=== PATIENT | male | born 1955 | race Caucasian/White ===

== ENCOUNTER 2018-10-29 15:36 | Inpatient (IN) | payer OTHER ==
[2018-10-29 16:36] VITALS: BMI 17.4
--- NOTE | 2018-10-29 17:28 | HP ---
CIWA Score Nausea/Vomitin Muscle Tremors: 2 Anxiety: 2 Agitation: 2 Paroxysmal Sweats: 1-Minimal Palms Moist Orientation: 0-Oriented Tacttile Disturbances: 1-Very Mild Itch/Numbness Auditory Disturbances: 1-Very Mild Visual Disturbances: 0-None Headache: 2-Mild CIWA-Ar Total Score: 13 - Admission Criteria [facility]ASAS Guidelines: Admission for Medically Managed Detox: Requires at least one of the followin. CIWA greater than 12 2. Seizures within the past 24 hours 3. Delirium tremens within the past 24 hours 4. Hallucinations within the past 24 hours 5. Acute intervention needed for co occurring medical disorder 6. Acute intervention needed for co occurring psychiatric disorder 7. Severe withdrawal that cannot be handled at a lower level of care (continued vomiting, continued diarrhea, abnormal vital signs) requiring intravenous medication and/or fluids 8. Patient presents the following: CIWA greater than 12 Admission Criteria Met: Admission criteria met Admission ROS BHS - HPI Chief Complaint: i need help to stop drinking alcohol and marijuana Allergies/Adverse Reactions: Allergies Allergy/AdvReac Type Severity Reaction Status Date / Time No Known Allergies Allergy Verified 10/29/18 18:34 History of Present Illness: this 63 years old male with alcohol and marijuana dependence,seeking detox, withdrawal symptom,last detox 2017 in [facility] syncope fx of right patella,right leg had calvin in right leg,walking with cane since then nicotine dependence no significant period of sobriety weight loss Exam Limitations: No Limitations - Ebola screening Have you traveled outside of the country in the last 21 days: No (N) Have you had contact with anyone from an Ebola affected area: No Have you been sick,other than usual withdrawal symptoms: No Do you have a fever: No - Review of Systems Constitutional: Loss of Appetite, Malaise, Night Sweats, Changes in sleep, Weakness, Unintentional Wgt. Loss EENT: reports: Nose Congestion Respiratory: reports: No Symptoms reported Cardiac: reports: No Symptoms Reported GI: reports: Diarrhea, Nausea, Poor Appetite : reports: No Symptoms Reported Integumentary: reports: Dryness Neuro: reports: Headache, Tremors Endocrine: reports: No Symptoms Reported Hematology: reports: No Symptoms Reported Psychiatric: reports: No Sypmtoms Reported, Judgement Intact, Mood/Affect Appropiate, Orientated x3 Other Systems: Reviewed and Negative Patient History - Patient Medical History Hx Anemia: No Hx Asthma: No Hx Chronic Obstructive Pulmonary Disease (COPD): No Hx Cancer: No Hx Cardiac Disorders: No Hx Congestive Heart Failure: No Hx Hypertension: No Hx Hypercholesterolemia: No Hx Pacemaker: No HX Cerebrovascular Accident: No Hx Seizures: No Hx Dementia: No Hx Diabetes: No Hx Gastrointestinal Disorders: No Hx Liver Disease: No Hx Genitourinary Disorders: No Hx Sexually Transmitted Disorders: No Hx Renal Disease (ESRD): No Hx Thyroid Disease: No Hx Human Immunodeficiency Virus (HIV): No (last 2018 negative) Hx Hepatitis C: No Hx Depression: Yes (no medication) Hx Suicide Attempt: No Hx Schizophrenia: No Other Medical History: no suiidal,no homicidal,x of right leg and patella, ambulation - Patient Surgical History Past Surgical History: Yes Hx Orthopedic Surgery: Yes (fx of right leg had calvin in 2016) - PPD History Documented Results: Negative w/o proof Implanted On Prior [facility] Admission?: Yes Date: 06/04/14 PPD to be Administered?: Yes - Smoking Cessation Smoking history: Current every day smoker Have you smoked in the past 12 months: Yes Aproximately how many cigarettes per day: 10 Hx Chewing Tobacco Use: No Initiated information on smoking cessation: Yes 'Breaking Loose' booklet given: 10/29/18 - Substance & Tx. History Hx Alcohol Use: Yes Hx Substance Use: Yes Substance Use Type: Alcohol, Marijuana Hx Substance Use Treatment: Yes ([place]) - Substances Abused Alcohol Route: Oral Frequency: Daily Amount used: 6 packs of 12 ozs of beer Age of first use: 16 Date of Last Use: 10/29/18 Marijuana/Hashish Route: Smoking Frequency: 1-2 times per week Amount used: 5$ Age of first use: 24 Date of Last Use: 10/26/18 Family Disease History - Family Disease History Family History: Denies Admission Physical Exam BHS - Vital Signs Vital Signs: Vital Signs - 24 hr 10/29/18 16:34 Temperature 97.1 F L Pulse Rate 103 H Respiratory 18 Rate Blood Pressure 141/95 - Physical General Appearance: Yes: Moderate Distress, Tremorous, Irritable, Sweating, Anxious HEENTM: Yes: Normal ENT Inspection, GORDY, Pharynx Normal Respiratory: Yes: Lungs Clear, Normal Breath Sounds, No Respiratory Distress Neck: Yes: Within Normal Limits, Supple, Trachea in good position Breast: Yes: Within Normal Limits Cardiology: Yes: Tachycardia Abdominal: Yes: Within Normal Limits, Normal Bowel Sounds, Non Tender, Soft Genitourinary: Yes: Within Normal Limits Back: Yes: Muscle Spasm Musculoskeletal: Yes: Back pain, Muscle Pain Extremities: Yes: Tremors (s/p surgery of right leg) Neurological: Yes: Fully Oriented, Alert, Motor Strength 5/5 Integumentary: Yes: Dry Lymphatic: Yes: Within Normal Limits - Diagnostic (1) Alcohol dependence with uncomplicated withdrawal Current Visit: Yes Status: Acute (2) Cannabis dependence Current Visit: Yes Status: Acute (3) Nicotine dependence Current Visit: No Status: Acute (4) Syncope Current Visit: Yes Status: Acute (5) Weight loss Current Visit: Yes Status: Acute (6) Use of cane as ambulatory aid Current Visit: Yes Status: Acute Cleared for Admission [facility] - Detox or Rehab [facility] Level of Care: Medically Managed Detox Regimen/Protocol: Librium S Breath Alcohol Content Breath Alcohol Content: 0.044 Urine Drug Screen - Results Drug Screen Negative: No Urine Drug Screen Results: THC-Marijuana
[2018-10-29] MEDS ORDERED: LOPERAMIDE HCL 2 MG CAPSULE PO PRN (17:47)
[2018-10-29] MEDS ORDERED: P-EPHED 60MG/TRIPROLIDI 2.5MG TABLET PO PRN (17:47)
[2018-10-29] MEDS ORDERED: MAGNESIUM CITRATE 300 ML BOTTLE PO PRN (17:47)
[2018-10-29] MEDS ORDERED: hydrOXYzine PAMOATE 25 MG CAPSULE (FP) PO PRN (17:47)
[2018-10-29] MEDS ORDERED: ACETAMINOPHEN 325 MG TABLET (FP) PO PRN (17:47)
[2018-10-29] MEDS ORDERED: guaiFENesin/D-METHORPHAN HB 10 ML UNIT-DOSE CUPS PO PRN (17:47)
[2018-10-29] MEDS ORDERED: MENTHOL/PHENOL 1 EACH UD MM PRN (17:47)
[2018-10-29] MEDS ORDERED: MAG HYDROX/AL HYDROX/SIMETH 30 ML UNIT-DOSE CUP PO PRN (17:47)
[2018-10-29] MEDS ORDERED: chlordiazePOXIDE HCL 25 MG CAPSULE PO PRN (17:47)
[2018-10-29] MEDS ORDERED: MAGNESIUM HYDROX 2400MG/30ML ORAL SUSPENSION 30 ML CUP PO PRN (17:47)
[2018-10-29] MEDS ORDERED: MELATONIN 5 MG TABLETS PO PRN (22:00)
[2018-10-29] MEDS: chlordiazePOXIDE HCL 25 MG CAPSULE PO SCH (23:02)
[2018-10-29] MEDS: NICOTINE 21 MG/24 HOURS TOPICAL PATCH TD SCH (23:02)
[2018-10-29] MEDS: THIAMINE HCL 100 MG TABLET (FP) PO SCH (23:02)
[2018-10-30] MEDS: chlordiazePOXIDE HCL 25 MG CAPSULE PO SCH ×4 (05:53→22:07)
[2018-10-30] MEDS: PRENATAL VITAMINS W/ FOLIC ACID TABLET (FP) PO SCH (11:03)
[2018-10-30] MEDS: NICOTINE 21 MG/24 HOURS TOPICAL PATCH TD SCH (11:04)
[2018-10-30 13:03] LABS: HEMATOCRIT 39.6 % (35.4-49); HEMOGLOBIN 12.4 GM/dL (11.7-16.9); MCH 28.6 pg (25.7-33.7); MCHC 31.3 g/dl (32.0-35.9); MEAN CELL VOLUME 91.4 fl (80-96); MEAN PLT VOLUME 7.8 fl (7.5-11.1); PLATELET COUNT 262 K/MM3 (134-434); RBC 4.34 M/mm3 (4.00-5.60); RDW 13.3 % (11.9-15.9); WHITE BLOOD COUNT 5.3 K/mm3 (4.0-10.0)
[2018-10-30 13:05] LABS: ALBUMIN 3.7 g/dl (3.4-5.0); ALK PHOS 81 U/L (45-117); ANION GAP 8 MMOL/L (8-16); BILIRUBIN,TOTAL 1.4 mg/dL (0.2-1); BLOOD UREA NITROGEN 11 mg/dL (7-18); CALCIUM 8.9 mg/dL (8.5-10.1); CHLORIDE 100 mmol/L (98-107); CO2 27 mmol/L (21-32); CREATININE 0.9 mg/dL (0.55-1.3); GLUCOSE,RANDOM 145 mg/dL (74-106); SGOT/AST 27 U/L (15-37); SGPT/ALT 17 U/L (13-61); SODIUM 135 mmol/L (136-145); TOT PROT 7.6 g/dl (6.4-8.2)
[2018-10-30] MEDS: HYDROCORTISONE 1% TOPICAL CREAM 30 GM TUBE TP SCH ×2 (14:18→22:07)
--- NOTE | 2018-10-30 17:23 | PN ---
S CIWA - CIWA Score Nausea/Vomitin Muscle Tremors: 4-Moderate,w/Arms Extend Anxiety: 4-Mod. Anxious/Guarded Agitation: 4-Moderately Restless Paroxysmal Sweats: 3 Orientation: 0-Oriented Tacttile Disturbances: 0-None Auditory Disturbances: 0-None Visual Disturbances: 0-None Headache: 0-None Present CIWA-Ar Total Score: 17 BHS Progress Note (SOAP) Subjective: Tremor, diarrhea, interrupted sleep. Patient c/o itchy rash on right of abdomen stating he accidentally hit his side on metal and the area got scratched and irritating. Objective: 10/30/18 17:19 Last Vital Signs Temp Pulse Resp BP Pulse Ox 99.0 F 78 16 118/79 10/30/18 15:26 10/30/18 15:26 10/30/18 15:26 10/30/18 15:26 Laboratory Tests 10/30/18 10/30/18 10/30/18 07:40 07:40 07:40 WBC 5.3 RBC 4.34 Hgb 12.4 Hct 39.6 MCV 91.4 MCH 28.6 MCHC 31.3 L RDW 13.3 Plt Count 262 D MPV 7.8 Sodium 135 L Potassium 4.0 Chloride 100 Carbon Dioxide 27 Anion Gap 8 BUN 11 Creatinine 0.9 Creat Clearance w eGFR > 60 Random Glucose 145 H Calcium 8.9 Total Bilirubin 1.4 H AST 27 ALT 17 Alkaline Phosphatase 81 Total Protein 7.6 Albumin 3.7 RPR Titer Nonreactive Labs reviewed: glucose 145, total bilirubin 1.4 Assessment: 10/30/18 17:20 Withdrawal symptoms Noted with hyperglycemia and elevated total bilirubin Plan: Continue detox Hyperglycemia: repeat fasting glucose Elevated total bilirubin: repeat total bilirubin level Hydrocortisone cream ordered for itchy rash on abdomen
[2018-10-30] MEDS: THIAMINE HCL 100 MG TABLET (FP) PO SCH (22:07)
[2018-10-30] MEDS: IBUPROFEN 400 MG TABLET (FP) PO PRN (22:09)
[2018-10-31] MEDS: chlordiazePOXIDE HCL 25 MG CAPSULE PO SCH ×3 (05:54→17:25)
[2018-10-31] MEDS: HYDROCORTISONE 1% TOPICAL CREAM 30 GM TUBE TP SCH ×3 (05:55→22:10)
--- NOTE | 2018-10-31 09:13 | PN ---
[facility] CIWA - CIWA Score Nausea/Vomitin-Mild Nausea/No Vomiting Muscle Tremors: 3 Anxiety: 3 Agitation: 2 Paroxysmal Sweats: 1-Minimal Palms Moist Orientation: 1-Uncertain about Date Tacttile Disturbances: 0-None Auditory Disturbances: 0-None Visual Disturbances: 0-None Headache: 2-Mild CIWA-Ar Total Score: 13 S Progress Note (SOAP) Subjective: ambulate with cane on [address] c/o arthritis joints pain requests Enrique guerrero tremor sweat restlessness trouble sleep at night irritable Objective: 10/31/18 15:04 Vital Signs Temperature 97.2 F L 10/31/18 13:22 Pulse Rate 88 10/31/18 13:22 Respiratory Rate 18 10/31/18 13:22 Blood Pressure 119/78 10/31/18 13:22 O2 Sat by Pulse Oximetry (%) Laboratory Last Values WBC 5.3 K/mm3 (4.0-10.0) 10/30/18 07:40 RBC 4.34 M/mm3 (4.00-5.60) 10/30/18 07:40 Hgb 12.4 GM/dL (11.7-16.9) 10/30/18 07:40 Hct 39.6 % (35.4-49) 10/30/18 07:40 MCV 91.4 fl (80-96) 10/30/18 07:40 MCH 28.6 pg (25.7-33.7) 10/30/18 07:40 MCHC 31.3 g/dl (32.0-35.9) L 10/30/18 07:40 RDW 13.3 % (11.9-15.9) 10/30/18 07:40 Plt Count 262 K/MM3 (134-434) D 10/30/18 07:40 MPV 7.8 fl (7.5-11.1) 10/30/18 07:40 Sodium 135 mmol/L (136-145) L 10/30/18 07:40 Potassium 4.0 mmol/L (3.5-5.1) 10/30/18 07:40 Chloride 100 mmol/L (98-107) 10/30/18 07:40 Carbon Dioxide 27 mmol/L (21-32) 10/30/18 07:40 Anion Gap 8 MMOL/L (8-16) 10/30/18 07:40 BUN 11 mg/dL (7-18) 10/30/18 07:40 Creatinine 0.9 mg/dL (0.55-1.3) 10/30/18 07:40 Creat Clearance w eGFR > 60 (>60) 10/30/18 07:40 Random Glucose 145 mg/dL (74-106) H 10/30/18 07:40 Fasting Glucose 134 mg/dL (74-106) H 10/31/18 07:00 Calcium 8.9 mg/dL (8.5-10.1) 10/30/18 07:40 Total Bilirubin 0.8 mg/dL (0.2-1) 10/31/18 07:00 AST 27 U/L (15-37) 10/30/18 07:40 ALT 17 U/L (13-61) 10/30/18 07:40 Alkaline Phosphatase 81 U/L (45-117) 10/30/18 07:40 Total Protein 7.6 g/dl (6.4-8.2) 10/30/18 07:40 Albumin 3.7 g/dl (3.4-5.0) 10/30/18 07:40 RPR Titer Nonreactive (NONREACTIVE) 10/30/18 07:40 lab noted Assessment: 10/31/18 15:04 withdrawal sx 10/31/18 15:04 arthritis Plan: continue detox enrique guerrero
[2018-10-31 10:18] LABS: BILIRUBIN,TOTAL 0.8 mg/dL (0.2-1)
[2018-10-31] MEDS: METHYL SALICYLATE/MENTHOL OINT 30 GM TUBE TP SCH ×2 (10:22→22:11)
[2018-10-31] MEDS: PRENATAL VITAMINS W/ FOLIC ACID TABLET (FP) PO SCH (10:22)
[2018-10-31] MEDS: NICOTINE 21 MG/24 HOURS TOPICAL PATCH TD SCH (10:23)
[2018-10-31] MEDS: IBUPROFEN 400 MG TABLET (FP) PO PRN (17:27)
[2018-10-31] MEDS: THIAMINE HCL 100 MG TABLET (FP) PO SCH (22:12)
[2018-10-31] MEDS: chlordiazePOXIDE 5 MG CAPSULE PO SCH (22:12)
[2018-11-01] MEDS: chlordiazePOXIDE 5 MG CAPSULE PO SCH ×3 (05:53→17:52)
[2018-11-01] MEDS: HYDROCORTISONE 1% TOPICAL CREAM 30 GM TUBE TP SCH ×3 (05:54→22:25)
[2018-11-01] MEDS: PRENATAL VITAMINS W/ FOLIC ACID TABLET (FP) PO SCH (10:19)
[2018-11-01] MEDS: NICOTINE 21 MG/24 HOURS TOPICAL PATCH TD SCH (10:19)
[2018-11-01] MEDS: METHYL SALICYLATE/MENTHOL OINT 30 GM TUBE TP SCH ×2 (10:20→22:24)
--- NOTE | 2018-11-01 12:56 | PN ---
S Progress Note Note: PATIENT CONTINUES WITH DETOX REGIMEN FOR ETOH DEPENDENCE. PATIENT C/O RIGHT HIP AND LEG DISCOMFORT, CHRONIC DUE TO NAE PLACEMENT. PATIENT ALSO C/O HEADACHE AND NAUSEA. Vital Signs Temperature 97.7 F 11/01/18 09:24 Pulse Rate 74 11/01/18 09:24 Respiratory Rate 16 11/01/18 09:24 Blood Pressure 108/80 11/01/18 09:24 O2 Sat by Pulse Oximetry (%) Laboratory Tests 10/30/18 10/30/18 10/30/18 07:40 07:40 07:40 WBC 5.3 RBC 4.34 Hgb 12.4 Hct 39.6 MCV 91.4 MCH 28.6 MCHC 31.3 L RDW 13.3 Plt Count 262 D MPV 7.8 Sodium 135 L Potassium 4.0 Chloride 100 Carbon Dioxide 27 Anion Gap 8 BUN 11 Creatinine 0.9 Creat Clearance w eGFR > 60 Random Glucose 145 H Fasting Glucose Calcium 8.9 Total Bilirubin 1.4 H AST 27 ALT 17 Alkaline Phosphatase 81 Total Protein 7.6 Albumin 3.7 RPR Titer Nonreactive 10/31/18 07:00 WBC RBC Hgb Hct MCV MCH MCHC RDW Plt Count MPV Sodium Potassium Chloride Carbon Dioxide Anion Gap BUN Creatinine Creat Clearance w eGFR Random Glucose Fasting Glucose 134 H Calcium Total Bilirubin 0.8 AST ALT Alkaline Phosphatase Total Protein Albumin RPR Titer PE: ALERT AND ORIENTED X 3 SKIN WARM AND DRY CAR S1S2 RESP CTA BL EXT AMB WITH CANE, NO EDEMA, + NAE RIGHT LEG A/P: WITHDRAWAL SX RIGHT LEG CHRONIC PAIN WILL CONTINUE DETOX ENCOURAGE FLUIDS ADD FLEXERIL TO REGIMEN FOR PAIN IBU/APAP FOR HEADACHE CONTINUE TO MONITOR FOR D/C IN AM
[2018-11-01] MEDS: CYCLOBENZAPRINE HCL 10 MG TABLET (FP) PO SCH ×2 (14:35→22:24)
[2018-11-01] MEDS: chlordiazePOXIDE HCL 10 MG CAPSULE PO SCH (22:24)
[2018-11-01] MEDS: THIAMINE HCL 100 MG TABLET (FP) PO SCH (22:24)
[2018-11-02] MEDS: HYDROCORTISONE 1% TOPICAL CREAM 30 GM TUBE TP SCH (06:16)
[2018-11-02] MEDS: CYCLOBENZAPRINE HCL 10 MG TABLET (FP) PO SCH (06:16)
[2018-11-02] MEDS: chlordiazePOXIDE HCL 10 MG CAPSULE PO SCH ×2 (06:16→10:24)
[2018-11-02 09:06] VITALS: BP 105/71; PULSE 76; TEMP 96.4
[2018-11-02] MEDS: PRENATAL VITAMINS W/ FOLIC ACID TABLET (FP) PO SCH (10:23)
[2018-11-02] MEDS: NICOTINE 21 MG/24 HOURS TOPICAL PATCH TD SCH (10:23)
[2018-11-02] MEDS: METHYL SALICYLATE/MENTHOL OINT 30 GM TUBE TP SCH (10:23)
--- NOTE | 2018-11-02 11:58 | DS ---
[facility] Detox Discharge Summary Admission Date: 10/29/18 Discharge Date: 11/02/18 - History Present History: Alcohol Dependence Additional Comments: 63 years old male admitted on 10/29/18 for alcohol withdrawal stabilization completed detox regimen alert [facility] services Pertinent Past History: dietary control no concentrated sugar - Physical Exam Results Vital Signs: Vital Signs Temperature 96.4 F L 11/02/18 09:05 Pulse Rate 76 11/02/18 09:05 Respiratory Rate 16 11/02/18 09:05 Blood Pressure 105/71 11/02/18 09:05 O2 Sat by Pulse Oximetry (%) Pertinent Admission Physical Exam Findings: alcohol withdrawal sx Vital Signs Temperature 96.4 F L 11/02/18 09:05 Pulse Rate 76 11/02/18 09:05 Respiratory Rate 16 11/02/18 09:05 Blood Pressure 105/71 11/02/18 09:05 O2 Sat by Pulse Oximetry (%) Laboratory Last Values WBC 5.3 K/mm3 (4.0-10.0) 10/30/18 07:40 RBC 4.34 M/mm3 (4.00-5.60) 10/30/18 07:40 Hgb 12.4 GM/dL (11.7-16.9) 10/30/18 07:40 Hct 39.6 % (35.4-49) 10/30/18 07:40 MCV 91.4 fl (80-96) 10/30/18 07:40 MCH 28.6 pg (25.7-33.7) 10/30/18 07:40 MCHC 31.3 g/dl (32.0-35.9) L 10/30/18 07:40 RDW 13.3 % (11.9-15.9) 10/30/18 07:40 Plt Count 262 K/MM3 (134-434) D 10/30/18 07:40 MPV 7.8 fl (7.5-11.1) 10/30/18 07:40 Sodium 135 mmol/L (136-145) L 10/30/18 07:40 Potassium 4.0 mmol/L (3.5-5.1) 10/30/18 07:40 Chloride 100 mmol/L (98-107) 10/30/18 07:40 Carbon Dioxide 27 mmol/L (21-32) 10/30/18 07:40 Anion Gap 8 MMOL/L (8-16) 10/30/18 07:40 BUN 11 mg/dL (7-18) 10/30/18 07:40 Creatinine 0.9 mg/dL (0.55-1.3) 10/30/18 07:40 Creat Clearance w eGFR > 60 (>60) 10/30/18 07:40 Random Glucose 145 mg/dL (74-106) H 10/30/18 07:40 Fasting Glucose 134 mg/dL (74-106) H 10/31/18 07:00 Calcium 8.9 mg/dL (8.5-10.1) 10/30/18 07:40 Total Bilirubin 0.8 mg/dL (0.2-1) 10/31/18 07:00 AST 27 U/L (15-37) 10/30/18 07:40 ALT 17 U/L (13-61) 10/30/18 07:40 Alkaline Phosphatase 81 U/L (45-117) 10/30/18 07:40 Total Protein 7.6 g/dl (6.4-8.2) 10/30/18 07:40 Albumin 3.7 g/dl (3.4-5.0) 10/30/18 07:40 RPR Titer Nonreactive (NONREACTIVE) 10/30/18 07:40 lab noted - Treatment Hospital Course: Detox Protocol Followed, Detoxed Safely, Responded well, Discharged Condition Good, Rehab Referral Accepted Patient has Accepted a Rehab Referral to: [facility] - Medication Discharge Medications: Ambulatory Orders NK [No Known Home Medication] 10/29/18 - Diagnosis (1) Alcohol dependence with uncomplicated withdrawal Status: Acute (2) Diabetes mellitus type II, controlled Status: Chronic Qualifiers: Diabetes mellitus terminal supervisor insulin use: without senior living use Diabetes mellitus complication status: without complication Qualified Code(s): E11.9 - Type 2 diabetes mellitus without complications (3) Weight loss Status: Acute (4) Nicotine dependence Status: Acute Qualifiers: Nicotine product type: cigarettes Substance use status: in withdrawal Qualified Code(s): F17.213 - Nicotine dependence, cigarettes, with withdrawal - AMA Did Patient Leave Against Medical Advice: No
== END 2018-11-02 11:42 | disposition home or self-care (01) | DRG 897 ==
LOC: YASAS 15:36 → Y3N 18:16
PROC: HZ2ZZZZ Detoxification Services for Substance Abuse Treatment (ICD-10-PCS; principal; 2018-10-29)
DX: F10.230 Alcohol dependence with withdrawal, uncomplicated (principal); R17 Unspecified jaundice; Z68.1 Body mass index [BMI] 19.9 or less, adult; F12.20 Cannabis dependence, uncomplicated; F17.213 Nicotine dependence, cigarettes, with withdrawal; F32.9 Major depressive disorder, single episode, unspecified; E11.65 Type 2 diabetes mellitus with hyperglycemia; R21 Rash and other nonspecific skin eruption; M79.604 Pain in right leg; R63.4 Abnormal weight loss; R26.89 Other abnormalities of gait and mobility; Z99.89 Dependence on other enabling machines and devices; Z59.0 Homelessness
CPT/HCPCS: 36415; 80053; 82247; 82947; 85027; 86593